=== PATIENT | female | born 1985 | race Caucasian/White ===

== ENCOUNTER 2019-04-18 09:13 | Outpatient (CLI) | payer OTHER, SELFPAY ==
[2019-04-18 09:50] LABS: Basophils Percent Auto 0.4 % (0.2-1.2); Eosinophils Absolute Auto 0.3 K/mm3 (0-0.3); Eosinophils Percent Auto 3.1 % (0-4.4); Hematocrit 29.5 % (37.0-47.0); Hemoglobin 9.6 g/dL (12.0-15.0); Immature Granulocyte Absolute 0.19 K/mm3 (0.00-0.031); Immature Granulocyte Percent A 1.8 % (0-0.5); Lymphocytes Absolute Auto 1.75 K/mm3 (0.9-3.2); Lymphocytes Percent Auto 16.9 % (18.3-44.2); Mean Corpuscular HGB Conc 32.5 g/dl (32-36); Mean Corpuscular Hemoglobin 29.4 pg (26-34); Mean Corpuscular Volume 90.5 fl (80-100); Mean Platelet Volume 9.8 fl (7.4-10.4); Monocytes Absolute Auto 0.5 K/mm3 (0.1-0.6); Monocytes Percent Auto 5.2 % (2.6-8.5); Neutrophils Absolute Auto 7.5 K/mm3 (1.3-6.7); Neutrophils Percent Auto 72.6 % (45.5-73.1); Platelet Count Result 249 k/mm3 (150-375); Red Blood Count 3.26 M/mm3 (4.2-5.4); Red Cell Distribution Width 13.2 % (11.5-14.5); White Blood Count 10.4 K/mm3 (4.5-10.0)
[2019-04-18 09:58] LABS: Add Urine Microscopic? YES; Appearance Urine Clear (Clear); Bacteria Urine Trace /hpf; Bilirubin Urine Negative (Negative); Blood Urine Negative (Negative); Color Urine Yellow (Yellow); Glucose Urine UA Negative (Negative); Ketones Urine Negative (Negative); Leukocyte Esterase Ur Negative LEU/UL (NEGATIVE); Nitrate Urine Negative (Negative); Protein Urine Negative (Negative); RBC Urine 0-2 /hpf (0-2); Specific Grav Ur 1.012 (1.001-1.035); Squamous Epithelial Cell Urine Rare /hpf (Few); Urobilinogen Urine Negative mg/dL (<2.0); WBC Urine 0-3 /hpf (0-3)
[2019-04-18 10:34] LABS: Thyroid Stimulating Hormone 0.274 uIU/mL (0.465-4.680)
[2019-04-18 10:48] LABS: Vitamin D 25 Hydroxy 25.3 ng/mL
[2019-04-18 10:50] LABS: HIV 1/2 Ab P24 Ag Result Negative (Negative); Hepatitis C Virus Antibody Negative (Negative)
[2019-04-21 09:40] LABS: Rapid Plasma Reagin Non-Reactive (NonReactive)
[2019-04-25 10:04] LABS: Hematocrit 31.5 % (35.0-45.0); MCH 30.1 pg (27.0-33.0); MCV 94.9 FL (80.0-100.0); RDW 15.3 % (11.0-15.0); Red Blood Cell Count 3.32 Mill/uL (3.80-5.10)
== END 2019-04-18 09:14 | disposition home or self-care (01) ==
PROVIDERS: Visit Provider Student in an Organized Health Care Education/Training Program
DX: O09.529 Supervision of elderly multigravida, unspecified trimester (principal); O23.40 Unspecified infection of urinary tract in pregnancy, unspecified trimester; Z3A.00 Weeks of gestation of pregnancy not specified
CPT/HCPCS: 36415; 81001; 81220; 81243; 82306; 83021; 84443; 85025; 86592; 86703; 86762; 86787; 86803; 86900; 86901; 87077; 87086; 87088; 87186; G0432

== ENCOUNTER 2019-04-24 07:48 | Outpatient (CLI) | payer OTHER, SELFPAY ==
[2019-04-24 08:44] LABS: Free T4 Free Thyroxine 0.55 ng/mL (0.78-2.19); Thyroid Stimulating Hormone 0.475 uIU/mL (0.465-4.680); Total Triiodothyronine (T3) 1.81 NG/ML (0.97-1.69)
[2019-04-26 02:51] LABS: Triiodothyronine T3 Free 2.5 pg/mL (2.3-4.2)
== END 2019-04-24 07:49 | disposition home or self-care (01) ==
PROVIDERS: Visit Provider Student in an Organized Health Care Education/Training Program
DX: R79.89 Other specified abnormal findings of blood chemistry (principal)
CPT/HCPCS: 36415; 84439; 84443; 84480; 84481

== ENCOUNTER 2019-07-05 06:54 | Outpatient (CLI) | payer OTHER, SELFPAY ==
[2019-07-05 08:13] LABS: Basophils Percent Auto 0.3 % (0.2-1.2); Eosinophils Absolute Auto 0.3 K/mm3 (0-0.3); Eosinophils Percent Auto 3.2 % (0-4.4); Hematocrit 30.1 % (37.0-47.0); Immature Granulocyte Absolute 0.48 K/mm3 (0.00-0.031); Immature Granulocyte Percent A 4.5 % (0-0.5); Lymphocytes Absolute Auto 1.98 K/mm3 (0.9-3.2); Lymphocytes Percent Auto 18.4 % (18.3-44.2); Mean Corpuscular HGB Conc 33.2 g/dl (32-36); Mean Corpuscular Hemoglobin 30.5 pg (26-34); Mean Corpuscular Volume 91.8 fl (80-100); Mean Platelet Volume 9.7 fl (7.4-10.4); Monocytes Absolute Auto 0.7 K/mm3 (0.1-0.6); Monocytes Percent Auto 6.7 % (2.6-8.5); Neutrophils Absolute Auto 7.2 K/mm3 (1.3-6.7); Neutrophils Percent Auto 66.9 % (45.5-73.1); Platelet Count Result 220 k/mm3 (150-375); Red Blood Count 3.28 M/mm3 (4.2-5.4); Red Cell Distribution Width 12.9 % (11.5-14.5); White Blood Count 10.8 K/mm3 (4.5-10.0)
[2019-07-05 09:57] LABS: Glucose 1 Hour PP 50gm Dose 150 mg/dL
== END 2019-07-05 06:55 | disposition home or self-care (01) ==
LOC: ANHLAB 06:55
PROVIDERS: Visit Provider Student in an Organized Health Care Education/Training Program
DX: Z34.82 Encounter for supervision of other normal pregnancy, second trimester (principal); Z3A.00 Weeks of gestation of pregnancy not specified
CPT/HCPCS: 36415; 82947; 85025

== ENCOUNTER 2019-07-09 06:59 | Outpatient (CLI) | payer OTHER, SELFPAY ==
[2019-07-09 07:32] LABS: Glucose Fasting Gestational 83 mg/dL (>/=95)
[2019-07-09 09:34] LABS: Glucose 1 Hour Gest 124 mg/dL (>/=180)
[2019-07-09 10:35] LABS: Glucose 2 Hour Gest 118 mg/dL (>/= 155)
[2019-07-09 11:43] LABS: Glucose 3 Hour Gest 107 mg/dL (>/=140)
== END 2019-07-09 07:00 | disposition home or self-care (01) ==
PROVIDERS: Visit Provider Student in an Organized Health Care Education/Training Program
DX: R73.09 Other abnormal glucose (principal)
CPT/HCPCS: 36415; 82951; 82952

== ENCOUNTER 2019-08-21 16:32 | Outpatient (CLI) | payer OTHER, SELFPAY ==
[2019-08-21 17:21] LABS: Basophils Percent Auto 0.4 % (0.2-1.2); Eosinophils Absolute Auto 0.2 K/mm3 (0-0.3); Eosinophils Percent Auto 2.2 % (0-4.4); Hemoglobin 11.5 g/dL (12.0-15.0); Immature Granulocyte Absolute 0.27 K/mm3 (0.00-0.031); Immature Granulocyte Percent A 2.5 % (0-0.5); Lymphocytes Absolute Auto 1.87 K/mm3 (0.9-3.2); Lymphocytes Percent Auto 17.1 % (18.3-44.2); Mean Corpuscular HGB Conc 33.8 g/dl (32-36); Mean Corpuscular Hemoglobin 30.8 pg (26-34); Mean Corpuscular Volume 91.2 fl (80-100); Mean Platelet Volume 10.6 fl (7.4-10.4); Monocytes Absolute Auto 0.9 K/mm3 (0.1-0.6); Monocytes Percent Auto 8.1 % (2.6-8.5); Neutrophils Absolute Auto 7.6 K/mm3 (1.3-6.7); Neutrophils Percent Auto 69.7 % (45.5-73.1); Platelet Count Result 213 k/mm3 (150-375); Red Blood Count 3.73 M/mm3 (4.2-5.4); Red Cell Distribution Width 13.3 % (11.5-14.5); White Blood Count 10.9 K/mm3 (4.5-10.0)
[2019-08-21 18:14] LABS: HIV 1/2 Ab P24 Ag Result Negative (Negative)
[2019-08-22 06:57] LABS: Rapid Plasma Reagin Non-Reactive (NonReactive)
== END 2019-08-21 16:33 | disposition home or self-care (01) ==
LOC: ANHLAB 16:33
PROVIDERS: Visit Provider Student in an Organized Health Care Education/Training Program
DX: Z34.83 Encounter for supervision of other normal pregnancy, third trimester (principal); Z3A.00 Weeks of gestation of pregnancy not specified
CPT/HCPCS: 36415; 85025; 86592; 86703; G0432

== ENCOUNTER 2019-08-23 14:55 | Outpatient (CLI) | payer OTHER, SELFPAY ==
[2019-08-23 15:32] LABS: Blood Urea Nitrogen 7 mg/dL (7-17); Calcium 8.5 mg/dL (8.4-10.2); Carbon Dioxide 22 mmol/L (22-30); Chloride 108 mmol/L (98-107); Estimated Glomerular Filt Rate > 60; Glucose 90 mg/dL (65-105); Potassium 3.7 mmol/L (3.4-5.0); Sodium 136 mmol/L (137-145)
== END 2019-08-23 14:56 | disposition home or self-care (01) ==
LOC: ANHOBOP 15:04
PROVIDERS: Visit Provider Student in an Organized Health Care Education/Training Program
DX: O13.9 Gestational [pregnancy-induced] hypertension without significant proteinuria, unspecified trimester (principal)
CPT/HCPCS: 36415; 80048

== ENCOUNTER 2019-08-23 14:55 | Outpatient (CLI) | payer OTHER, SELFPAY ==
[2019-08-23 15:12] VITALS: BMI 31.8
[2019-08-23 16:07] LABS: Collection Time Urine 24 HOURS
[2019-08-23 16:11] LABS: Total Volume 24 Hour Urine 1800 ml
[2019-08-23 16:13] LABS: Patient Weight 180 Lbs
[2019-08-23 16:15] LABS: Creatinine Clearance Urine 227.4 ml/min (75-125); Creatinine Urine 77.5 mg/dL; Total Protein Urine 24 Hr 288 MG/DAY (28-141); Total Protein Urine Random 16 mg/dL
== END 2019-08-23 14:56 | disposition home or self-care (01) ==
LOC: ANHOBOP 15:06
PROVIDERS: Visit Provider Student in an Organized Health Care Education/Training Program
DX: O13.9 Gestational [pregnancy-induced] hypertension without significant proteinuria, unspecified trimester (principal)
CPT/HCPCS: 81050; 82575; 84156

== ENCOUNTER 2019-08-28 08:55 | Outpatient (RCR) | payer OTHER, SELFPAY ==
[2019-08-22 13:40] VITALS: BP 116/71; PULSE 87
--- NOTE | ~2019-08-28 | US_ITS ---
EXAMINATION: US OB limited w BPP DATE: 08/22/2019 14:33 CDT INDICATION: Evaluate well-being. EJ. TECHNIQUE: Real-time transabdominal obstetric ultrasound. FINDINGS: No prior studies for comparison. There is a single living fetus in vertex presentation. The placenta is posterior without placenta pr evia. cardiac activity and movement is noted with a heart rate of 165 beats per minute. Biophysical profile: breathin of 2 movement: 2 of 2 tone: 2 of 2 Amniotic flud pocket: 2 of 2 Total score: 8 of 8 EJ is lower limits of normal measuring 8.8 cm (normal range for gestational age is 7.8-24.9 cm). IMPRESSION: 1. Single living intrauterine in vertex presentation. 2: Total biophysical profile score of 8/8. 3: Normal EJ measures 8.8 cm. Reviewed, dictated and finalized at location B.
[2019-08-28 09:40] VITALS: BP 122/73; PULSE 100
== END 2019-09-02 07:44 | disposition home or self-care (01) ==
LOC: ANHOBOP 08:55
PROVIDERS: Visit Provider Student in an Organized Health Care Education/Training Program
DX: O26.893 Other specified pregnancy related conditions, third trimester (principal); R03.0 Elevated blood-pressure reading, without diagnosis of hypertension; Z3A.35 35 weeks gestation of pregnancy
CPT/HCPCS: 59025; 76815; 76819

== ENCOUNTER 2019-08-31 18:53 | Inpatient (IN) | payer OTHER, SELFPAY ==
[2019-08-31] VITALS (13 sets, daily range): BP systolic 100–149; BP diastolic 67–88; PULSE 68–100; RESP 18; TEMP 36.4–36.8; BMI 32.0
[2019-08-31] MEDS: DINOPROSTONE 10 MG VAG INSERT VAGINAL (19:40)
[2019-08-31 19:44] LABS: Basophils Percent Auto 0.3 % (0.2-1.2); Eosinophils Absolute Auto 0.2 K/mm3 (0-0.3); Eosinophils Percent Auto 2.4 % (0-4.4); Hematocrit 33.3 % (37.0-47.0); Hemoglobin 11.2 g/dL (12.0-15.0); Immature Granulocyte Absolute 0.17 K/mm3 (0.00-0.031); Immature Granulocyte Percent A 1.7 % (0-0.5); Lymphocytes Absolute Auto 1.98 K/mm3 (0.9-3.2); Lymphocytes Percent Auto 19.8 % (18.3-44.2); Mean Corpuscular HGB Conc 33.6 g/dl (32-36); Mean Corpuscular Hemoglobin 30.3 pg (26-34); Mean Platelet Volume 10.5 fl (7.4-10.4); Monocytes Absolute Auto 0.8 K/mm3 (0.1-0.6); Monocytes Percent Auto 7.9 % (2.6-8.5); Neutrophils Absolute Auto 6.8 K/mm3 (1.3-6.7); Neutrophils Percent Auto 67.9 % (45.5-73.1); Platelet Count Result 198 k/mm3 (150-375); Red Cell Distribution Width 13.1 % (11.5-14.5)
--- NOTE | 2019-08-31 19:52 | LDADM ---
This patient, Zoe Hoffmann, was admitted to Labor/Delivery/Recovery 109 on 08/31/19 at 18:53. Plans for labor, pain management and were discussed with patient. Patient/family oriented to hospital policies and general routines including ID bracelet, bed and alarms, visiting hours, pain management, procedures, bathroom and other care routines, personal items, smoking policy, room service/diet and guest tray routines, security routines, and visiting hours. Patient/Family are encouraged to report perceived risks to care and to ask questions if they do not understand what they are told or what they should do. See OBIX for further documentation.
[2019-08-31 21:43] LABS: Alanine Aminotransferase 11 U/L (4-35); Albumin Level 3.2 g/dL (3.5-5.1); Alkaline Phosphatase 136 U/L (38-126); Anion Gap 10.9 mmol/L (7-16); Aspartate Amino Transferase 17 U/L (14-36); Bilirubin,Total 0.3 mg/dL (0.2-1.3); Blood Urea Nitrogen 8 mg/dL (7-17); Calcium 8.8 mg/dL (8.4-10.2); Carbon Dioxide 21 mmol/L (22-30); Chloride 106 mmol/L (98-107); Estimated CRCL calculation 132 ml/min; Estimated Glomerular Filt Rate > 60; Glucose 93 mg/dL (65-105); Potassium 3.9 mmol/L (3.4-5.0); Sodium 134 mmol/L (137-145); Uric Acid 3.9 mg/dL (2.5-7.5)
--- NOTE | 2019-08-31 21:53 | PM.IMHP ---
H&P: HPI History of Present Illness Chief complaint: IOL Narrative: Zoe Hoffmann is a 34 year old female LMP 12/20/18 currently 37w1d with SWETHA 09/20/19. Patient is dated by an ultrasound on 02/13/19 at 8w gestation. Patient presents to L&D for scheduled IOL secondary to gestational hypertension. Patient's BP was WNL for the majority of her until 08/21/19 when she had her first documented BP elevation in the office. Labs were obtained and WNL. Patient continued home BP measurements and reported values 110s-140s/60-90s. The patient also reported an increase in headaches over previous week. She was diagnosed with gestational hypertension and decision was made to proceed with induction of labor. Patient reports feeling well today. Currently denies any headache, chest pain, SOB, N/V, visual disturbances, or RUQ tenderness. Also denies any vaginal bleeding, leakage of fluid, or contractions. Reports good movement. Review of Systems Review of Systems: All systems reviewed & are unremarkable except as noted in HPI and below Constitutional: Constitutional: Reports as per HPI, Reports no additional constitutional complaints, Denies chills, Denies fever(s), Denies headache(s) and Denies night sweats Eyes: Eyes: Reports as per HPI and Reports no additional eye complaints ENT: Reports system reviewed and no additional complaints, except as documented, Reports as per HPI, Reports Normal hearing present and Denies headache(s) Cardiovascular: Cardiovascular: Reports as per HPI, Reports no additional cardiovascular complaints, Denies chest pain and Denies dyspnea Respiratory: Respiratory: Reports as per HPI, Reports no additional respiratory complaints, Denies cough and Denies dyspnea Gastrointestinal: Gastrointestinal: Reports as per HPI, Reports no additional gastrointestinal complaints, Denies abdominal pain, Denies change in bowel habits, Denies change in stool character, Denies nausea and Denies vomiting Genitourinary: Genitourinary: Reports no additional female genitourinary complaints, Reports as per HPI, Denies abnormal vaginal bleeding, Denies genital lesions, Denies hot flashes, Denies dyspareunia, Denies pelvic pain, Denies sexual dysfunction, Denies urinary incontinence, Denies vaginal discharge, Denies vaginal dryness and Denies vaginal odor Musculoskeletal: Musculoskeletal: Reports no additional musculoskeletal complaints and Reports as per HPI Integumentary/Breasts: Skin/Breast: Reports system reviewed and no additional complaints, except as docu, Reports as per HPI, Denies breast pain and Denies nipple discharge Neurologic: Reports system reviewed and no additional complaints, except as documented, Reports as per HPI, Reports Normal hearing present and Denies headache(s) Psychiatric: Psychiatric: Reports no additional psychiatric complaints, Reports as per HPI, Denies anxiety and Denies depression Endocrine: Endocrine: Reports no additional endocrine complaints and Reports as per HPI Hematologic/Lymphatic: Hematologic/Lymphatic: Reports no additional hematologic/lymphatic complaints and Reports as per HPI Allergic/Immunologic: Allergic/Immunologic: Reports no additional allergic/immunologic complaints and Reports as per HPI [facility] Family History Family History Grandparent Family history of type 2 diabetes mellitus Diabetes mellitus Father Hypertension Social History Social History Smoking status: Current every day smoker Tobacco type: cigarettes Second hand tobacco smoke exposure: Yes Alcohol intake: current Substance use: never Substance use type: methamphetamine Gender identity (if verbalized by the patient): Female Spiritual care concerns: No Meds Home Medications and Allergies Home Medications Medication Instructions Recorded Confirmed Type docosahexaenoic acid 200 mg capsul
[2019-08-31 22:18] LABS: Creatinine Urine 31.5 mg/dL; Total Protein Urine Random 11 mg/dL
[2019-08-31 22:21] LABS: Amphetamine Screen Urine Negative (Negative); Barbiturate Screen Urine Negative (Negative); Benzodiazepines Screen Urine Negative (Negative); Cannabinoid Screen Urine Negative (Negative); Cocaine Screen Urine Negative (Negative); Methadone Screen Urine Negative (Negative); Opiate Screen Urine Negative (Negative); Phencyclidine Screen Urine Negative (Negative)
[2019-08-31 22:53] LABS: Hepatitis B Surface Antigen Negative (Negative)
[2019-09-01] VITALS (146 sets, daily range): BP systolic 97–180; BP diastolic 47–107; PULSE 37–134; TEMP 36.4–36.8; O2SAT 74–100
[2019-09-01] MEDS: AMPICILLIN 2 GM/NS 100 ML 2 GM/100 ML BAG IVPB (05:31)
[2019-09-01] MEDS: LACTATED RINGERS 1,000 ML 125 ML IV CONT ×3 (05:31→14:43)
--- NOTE | 2019-09-01 06:11 | WPDANESEPP ---
Anes - Eval Pre Procedure Procedure: labor epidural Date/Time: 09/01/19 06:11 Surgeon: Bo Preop Diagnosis: labor pain Pre Op Diagnosis: IOL Patient Data Age: 34 Gender: F Height: 1.6 m Weight: 82 kg Last Vital Signs Temp 36.8 C 09/01/19 01:35 Pulse 74 09/01/19 06:00 BP 114/69 09/01/19 06:00 Allergies Allergy/AdvReac Type Severity Reaction Status Date / Time No Known Allergies Allergy Verified 08/28/19 08:42 Home Medications Medication Instructions Recorded Confirmed Type docosahexaenoic acid 200 mg capsule mg PO 02/06/19 History omeprazole 20 mg capsule,delayed 20 mg PO DAILY #30 cap 06/19/19 06/19/19 Rx release sulfamethoxazole 800 1 tablet PO Q12H #6 tablet 06/23/19 Rx mg-trimethoprim 160 mg tablet blood pressure monitor #1 each 08/21/19 08/21/19 Rx ferrous sulfate 325 mg (65 mg 325 mg PO BID #60 tablet 08/25/19 Rx iron) tablet Laboratory Tests 08/31/19 08/31/19 08/31/19 19:34 19:34 19:34 WBC 10.0 K/mm3 K/mm3 (4.5-10.0) RBC 3.70 M/mm3 L M/mm3 (4.2-5.4) Hgb 11.2 g/dL L g/dL (12.0-15.0) Hct 33.3 % L % (37.0-47.0) MCV 90.0 fl fl (80-100) MCH 30.3 pg pg (26-34) MCHC 33.6 g/dl g/dl (32-36) RDW 13.1 % % (11.5-14.5) Plt Count 198 k/mm3 k/mm3 (150-375) MPV 10.5 fl H fl (7.4-10.4) Immature Gran % (Auto) 1.7 % H % (0-0.5) Neut % (Auto) 67.9 % % (45.5-73.1) Lymph % (Auto) 19.8 % % (18.3-44.2) Catahoula % (Auto) 7.9 % % (2.6-8.5) Eos % (Auto) 2.4 % % (0-4.4) Baso % (Auto) 0.3 % % (0.2-1.2) Lymph # (Auto) 1.98 K/mm3 K/mm3 (0.9-3.2) C[place]oula # (Auto) 0.8 K/mm3 H K/mm3 (0.1-0.6) Eos # (Auto) 0.2 K/mm3 K/mm3 (0-0.3) Baso # (Auto) 0.0 K/mm3 K/mm3 (0.0-0.1) Abs Immat Gran (auto) 0.17 K/mm3 H K/mm3 (0.00-0.031) Absolute Neuts (auto) 6.8 K/mm3 H K/mm3 (1.3-6.7) Absolute Nucleated RBC 0.0 K/mm3 K/mm3 (0.0-0.012) Nucleated RBC % 0.0 % % (0.0-0.2) Sodium Potassium Chloride Carbon Dioxide Anion Gap BUN Creatinine Estim Creat Clear Calc Estimated GFR Glucose Uric Acid Calcium Total Bilirubin AST ALT Alkaline Phosphatase Total Protein Albumin U Random Total Protein Urine Creatinine Urine Opiates Screen Urine Methadone Screen Ur Barbiturates Screen Ur Phencyclidine Scrn Ur Amphetamine Screen U Benzodiazepines Scrn Urine Cocaine Screen U Cannabinoids Screen RPR Pending Hep Bs Antigen Blood Type O Positive Antibody Screen Negative 08/31/19 08/31/19 08/31/19 21:02 21:02 21:49 WBC RBC Hgb Hct MCV MCH MCHC RDW Plt Count MPV Immature Gran % (Auto) Neut % (Auto) Lymph % (Auto) Catahoula % (Auto) Eos % (Auto) Baso % (Auto) Lymph # (Auto) Catahoula # (Auto) Eos # (Auto) Baso # (Auto) Abs Immat Gran (auto) Absolute Neuts (auto) Absolute Nucleated RBC Nucleated RBC % Sodium 134 mmol/L L mmol/L (137-145) Potassium 3.9 mmol/L mmol/L (3.4-5.0) Chloride 106 mmol/L mmol/L (98-107) Carbon Dioxide 21 mmol/L L mmol/L (22-30) Anion Gap 10.9 mmol/L mmol/L (7-16) BUN 8 mg/dL mg/dL (7-17) Creat
[2019-09-01] MEDS: OXYTOCIN 30 UNITS/NS 500 ML 30 UNITS/500 ML BAG IV CONT (08:55)
[2019-09-01] MEDS: AMPICILLIN 1 GM/NS 50 ML 1 GM/50 ML BAG IVPB ×2 (09:27→13:30)
[2019-09-01 10:06] LABS: Rapid Plasma Reagin Non-Reactive (NonReactive)
--- NOTE | 2019-09-01 11:28 | PM.OBPNLAB ---
Pain Control Date/time seen: 09/01/19 11:28 Patient doing well. Reports feeling mild contractions. AROM, clear, however, blood tinged fluid noted. SVE /-2. EFM Cat. 1. Continue pitocin. Pain management PRN.
[2019-09-01] MEDS: miSOPROStol 200 MCG TABLET 1000 MCG (17:40)
[2019-09-01] MEDS: CARBOPROST TROMETHAMINE 250 MCG/ML AMPUL (17:44)
--- NOTE | 2019-09-01 17:58 | PM.OBPRVD ---
OB - Delivery Note Procedure Delivery date: 09/01/19 Procedure: The patient is a 34-year-old G2 now P2002 was admitted to Labor and Delivery on 08/31/2019 at 37 weeks and 1 day gestation for scheduled induction of labor secondary to gestational hypertension. Induction labor was begun with Cervidil. Initial cervical exam was fingertip dilated. Cervidil remained in place for 12 hours after which it was removed. Patient's cervical exam was approximately 1.5 cm dilated. Ampicillin was started for GBS prophylaxis. Pitocin was started and slowly titrated. Artificial rupture of membranes was performed at 11:15 a.m. Clear, however, blood-tinged amniotic fluid was noted. Patient's cervical exam at this time was 3 cm dilated. Pitocin was continued to be titrated throughout the remainder of the morning and afternoon. Patient became uncomfortable and requested epidural for pain management which was placed without difficulty. Contraction pattern was difficult to monitor and cervical change slowed down. An IUPC was placed for enhanced monitoring. Pitocin was continued and patient progressed to fully dilated. She was noted to be fully dilated at 5:10 p.m. Patient was prepped and draped for delivery. With single push, patient delivered infant's head atraumatically and without difficulty in RICHELLE presentation. Occiput restituted to maternal right side. A nuchal cord x1 was noted, however, was tight and unable to be reduced. With subsequent push, 's neck, shoulders, and rest of body were delivered without difficulty. Infant's nose and mouth were suctioned with bulb suction. was crying spontaneously. was placed on maternal abdomen and care was assumed by awaiting nursing staff. Delayed cord clamping was performed for 60 seconds. The cord was clamped and cut. A segment of cord was collected for cord gases. Cord blood was collected. The placenta was delivered spontaneously and intact. Moderate amount of brisk bleeding was noted. Vigorous bimanual massage was performed. Bleeding slowed down for a few minutes, however, brisk bleeding resumed. 1 mg of Cytotec was administered per rectum. Straight catheterization was performed with approximately 30 cc of clear urine returned. Placenta was reinspected without any abnormalities noted. Bimanual massage revealed firm fundus, however, slightly boggy lower uterine segment. Hemabate x1 dose was administered IM. Bleeding subsided. The patient was cleansed and dried. Estimated blood loss for entire delivery was 500 cc. The infant was a live-born female , weighing 6 lb 12 oz, Apgars 9 and 9. Both mother and baby doing well after delivery. events: Induced HTN and Labor Induction Induction method: other (cervidil) Delivery augmentation: rupture of membranes Delivery monitor: external FHT, external uterine and internal uterine Route of delivery: Laceration description: None Specimen: Yes (cord gases, cord blood and placenta) Estimated blood loss (mL): 500 Anesthesia type: Epidural Disposition: floor Complications: No immediate complications Baby Date of : 09/01/19 Time of : 17:32 Weeks of gestation at delivery: 37 gender: Female Weight (pounds): 6 Weight (ounces): 12 presentation: vertex position: Right Occiput Anterior Placenta delivery description: Spontaneous cord vessel description: 3 Vessels, Nuchal Cord and Clamped/Cut score one minute: 9 score five minutes: 9
[2019-09-01] MEDS: OXYTOCIN 30 UNITS/NS 500 ML 30 UNITS/500 ML BAG 999 UNITS IV CONT (18:30)
[2019-09-01] MEDS: OXYTOCIN 30 UNITS/NS 500 ML 30 UNITS/500 ML BAG 125 UNITS IV CONT (19:10)
--- NOTE | 2019-09-01 20:54 | PC.NURSE ---
September 01, 2019 at 1952. Patient transferred to post room #284 in wheelchair. Support person present. Oriented to unit, room, information board, rooming in, admission packet and security measures. Patient verbalizes understanding.
[2019-09-01] MEDS: ACETAMINOPHEN 325 MG TABLET 650 MG PO (21:10)
[2019-09-02 05:32] LABS: Hematocrit 32.6 % (37.0-47.0); Hemoglobin 10.7 g/dL (12.0-15.0)
[2019-09-02 07:55] VITALS: BP 109/60; PULSE 69; RESP 18; TEMP 36.8; O2SAT 98
--- NOTE | 2019-09-02 08:14 | PM.OBPNVD ---
OB - PN: Subj Subjective Date/time seen: 09/02/19 08:14 Patient doing well this AM. No complaints. Reports minimal lochia. Ambulating well. Denies any headache, chest pain, SOB, N/V, visual disturbances, or RUQ tenderness. OB - PN: Obj Data Labs CBC & Chem 7: 09/02/19 04:09 08/31/19 21:02 Labs: Laboratory Results - last 24 hr 08/31/19 09/02/19 19:34 04:09 Hgb 10.7 L Hct 32.6 L RPR Non-reactive OB - PN A/P Assessment and Plan (1) Normal spontaneous vaginal delivery: Code(s): O80 - Encounter for full-term uncomplicated delivery Status: Acute Assessment and Plan: doing well continue routine care anticipate dc home tomorrow (2) Gestational hypertension: Code(s): O13.9 - Gestational [-induced] hypertension without significant proteinuria, unspecified trimester Status: Acute Assessment and Plan: BP WNL this AM asymptomatic Time Spent With Patient Time: Total time spent is greater than 50% in coordination of care (as documented) at patient's floor/unit and/or counseling patient: Exam Const: General: comfortable and no acute distress GI: GI Palp: Yes Soft to palpation and No Tenderness to palpation present (GI) Other: fundus below umbilicus Extrem: Right lower extremity: no edema Left lower extremity: no edema
[2019-09-02] MEDS: DOCUSATE SODIUM 100 MG CAPSULE PO ×2 (09:36→15:17)
--- NOTE | 2019-09-02 09:45 | WPDANLDPN2 ---
Anes-Prog Note L&D Date/Time: 09/02/19 09:45 Comfortable throughout: labor Epidural/Spinal procedure site: clean & non-tender Neuro status: Neuro function grossly intact. Cardiovascular status: normal Respiratory status: normal Airway patency: baseline Mental status: baseline Post-Op hydration status: normal Vital Signs: Last Vital Signs Temp 36.8 C 09/02/19 07:55 Pulse 69 09/02/19 07:55 Resp 18 09/02/19 07:55 BP 109/60 09/02/19 07:55 Pulse Ox 98 09/02/19 07:55 I/O: Intake & Output 09/01/19 09/02/19 09/02/19 23:59 07:59 15:59 Intake Total 1200 Balance 1200 Post-procedural complaints: none Patient feedback: Patient satisfied with anesthetic care.
[2019-09-02] MEDS: WITCH HAZEL 40 PADS 1 PAD TOPICAL (15:14)
[2019-09-02] MEDS: DIBUCAINE 1% OINTMENT 30 GM TUBE 1 APPLIC TOPICAL (15:14)
[2019-09-02 18:55] VITALS: BP 132/68; PULSE 71; RESP 14; TEMP 36.7; O2SAT 98
[2019-09-02] MEDS: IBUPROFEN 600 MG TABLET PO (19:10)
[2019-09-03] MEDS: TETANUS,DIPHTHERIA,AC PERTUSSIS ADULT (0.5 ML) BOOSTRIX IM (05:27)
--- NOTE | 2019-09-03 07:36 | WPDANLDPN2 ---
Anes-Prog Note L&D Date/Time: 09/03/19 07:36 Comfortable throughout: labor Epidural/Spinal procedure site: clean & non-tender Neuro status: Neuro function grossly intact. Cardiovascular status: normal Respiratory status: normal Airway patency: baseline Mental status: baseline Post-Op hydration status: normal Vital Signs: Last Vital Signs Temp 36.7 C 09/02/19 18:55 Pulse 71 09/02/19 18:55 Resp 14 09/02/19 18:55 BP 132/68 09/02/19 18:55 Pulse Ox 98 09/02/19 18:55 Post-procedural complaints: none Patient feedback: Patient satisfied with anesthetic care.
[2019-09-03 08:00] VITALS: BP 135/81; PULSE 75; RESP 18; TEMP 36.6; O2SAT 99
--- NOTE | 2019-09-03 08:01 | P.PNOB_ITS ---
OB - PN: Subj Subjective Date/time seen: 09/03/19 08:01 Patient comments: pain well controlled, tolerating diet and other (Decreasing lochia.) baby status: doing well and nursing well OB - PN: Obj Data Labs CBC & Chem 7: 09/02/19 04:09 08/31/19 21:02 OB - PN A/P Plan day: 2 Plan: discharge home and other Comments: Patient doing well. Follow up 4-6 weeks. Discharge instructions provided. Time Spent With Patient Time: Total time spent is greater than 50% in coordination of care (as docum ented) at patient's floor/unit and/or counseling patient: Time with patient: less than 15 minutes Exam Psych: Affect: normal affect Other: Abd: fundus firm below umbilicus, nontender Perineum: healing Ext: nontender
--- NOTE | 2019-09-03 08:01 | PM.DS ---
DS: Admitting Diagnosis Admitting Diagnosis Admitting Diagnosis: Admission for medical induction of labor for gestational hypertension. DS: Discharge Diagnosis Discharge Diagnosis (1) Normal spontaneous vaginal delivery: Code(s): O80 - Encounter for full-term uncomplicated delivery Status: Acute (2) Encounter for induction of labor: Code(s): Z34.90 - Encounter for supervision of normal , unspecified, unspecified trimester Status: Acute (3) Gestational hypertension: Code(s): O13.9 - Gestational [-induced] hypertension without significant proteinuria, unspecified trimester Status: Acute DS: Summary Time Spent with Patient Time attestation: Total time spent providing and/or coordinating discharge services: Exam Psych: Affect: normal affect Other: Abd: fundus firm below umbilicus, nontender Perineum: healing Ext: nontender DS: Data Data Completed and Pending Pending studies at discharge: Pending at discharge 09/01/19 18:12 Surgical [PTH] Routine Discharge Plan Discharge Attending physician on discharge: Desirae Soriano Discharging Clinician: Boogie Bone Anticipated Discharge Date/Time: 09/03/19 08:06 Patient Disposition: Home, Self-Care Activity: may shower and pelvic rest Diet: regular Discharge Instructions: Pelvic rest 4-6 weeks. May take over the counter Tylenol for pain. Call for follow up appointment. Call for temp >100.4, saturating more than pad an hour, leg pain or redness. Patient Instructions: Antibiotic Form, How to Stop Smoking (DC) Stand Alone Forms: General Discharge Information Follow-up/Referrals: Desirae Soriano MD [Physician] - 4 Weeks (Call for appointment.) Discharge Medications: Discontinued omeprazole 20 mg capsule,delayed release(DR/EC) 20 mg PO DAILY Qty: 30 RF: 2 DHA 200 mg capsule 1 mg PO DAILY RF: 0 sulfamethoxazole-trimethoprim 800-160 mg tablet 1 tablet PO Q12H Qty: 6 RF: 0 ferrous sulfate 325 mg (65 mg iron) tablet 325 mg PO BID Qty: 60 RF: 0 No Action (DME) blood pressure monitor [Blood Pressure Kit] Kit See Rx Instructions .ROUTE .MEDSUPPLY Qty: 1 RF: 0 Date of admission: 08/31/19 18:53 Primary Care Provider: PHYSICIAN,SLURRY CONTROL OPERATOR HELPER Admitting Provider: Desirae Soriano Attending physician on admission: Desirae Soriano
[2019-09-03] MEDS: DOCUSATE SODIUM 100 MG CAPSULE PO (10:18)
[2019-09-03] MEDS: IBUPROFEN 600 MG TABLET PO (10:18)
[2019-09-04 11:16] VITALS: BP 136/86; PULSE 86; RESP 18; TEMP 36.9; O2SAT 98
== END 2019-09-03 14:36 | disposition home or self-care (01) | DRG 807 ==
LOC: ANHLDR 19:25 → ANHOB2 09-02 11:44 → ANHLDR 09-04 08:44 → ANHOB2 09-04 08:44
PROVIDERS: Admitting Provider Student in an Organized Health Care Education/Training Program; Visit Provider Obstetrics & Gynecology
DX: O13.4 Gestational [pregnancy-induced] hypertension without significant proteinuria, complicating childbirth (principal); Z37.0 Single live birth; O99.824 Streptococcus B carrier state complicating childbirth; O69.82X0 Labor and delivery complicated by other cord entanglement, without compression, not applicable or unspecified; Z3A.37 37 weeks gestation of pregnancy; O99.334 Smoking (tobacco) complicating childbirth; F17.210 Nicotine dependence, cigarettes, uncomplicated
CPT/HCPCS: 36415; 80053; 80307; 82570; 84156; 84550; 85014; 85018; 85025; 86592; 86850; 86900; 86901; 87340; 88307; 90715; A9270; J0290; J2590; J2795; J7120

== ENCOUNTER 2021-05-23 09:22 | Emergency (ER) | payer BC, SELFPAY ==
--- NOTE | ~2021-05-23 | CT_ITS ---
EXAMINATION: CT abdomen pelvis w con DATE: 05/23/2021 12:22 INDICATION: Upper abdominal pain. Nausea. TECHNIQUE: Computed tomography (CT) of the abdomen and pelvis was performed with 100 mL Omnipaque 350 intravenous contrast. Automated exposure control and iterative reconstruction technique were employe d. The dose-length product was 341.99 mGy-cm. COMPARISON: CT abdomen and pelvis 10/15/2017 FINDINGS: The visualized portions of the lung bases and mild atelectasis. No pleural effusion. The he art size is normal. No pericardial effusion. The liver, gallbladder, pancreas, adrenal glands, and ki dneys are normal. Calcifications in the spleen are consistent with old granulomatous disease. There i s an intrauterine device in expected position. There are no dilated loops of bowel. There is divertic ulosis of the colon without evidence of diverticulitis. The appendix is normal. There are no patholog ically enlarged lymph nodes. There is physiologic fluid in the pelvis. There is mild lumbar spondylos is. IMPRESSION: 1. No etiology for the patient's symptoms. Reviewed, dictated and finalized at location B.
[2021-05-23 09:45] VITALS: BP 133/83; PULSE 95; RESP 16; TEMP 36.5; O2SAT 100
[2021-05-23 09:54] LABS: Basophils Percent Auto 0.6 % (0.2-1.2); Eosinophils Absolute Auto 0.4 K/mm3 (0-0.3); Eosinophils Percent Auto 5.8 % (0-4.4); Hemoglobin 13.4 g/dL (12.0-15.0); Immature Granulocyte Absolute 0.02 K/mm3 (0.00-0.031); Immature Granulocyte Percent A 0.3 % (0-0.5); Lymphocytes Absolute Auto 2.47 K/mm3 (0.9-3.2); Lymphocytes Percent Auto 34.8 % (18.3-44.2); Mean Corpuscular HGB Conc 31.9 g/dl (32-36); Mean Corpuscular Hemoglobin 29.4 pg (26-34); Mean Corpuscular Volume 92.1 fl (80-100); Mean Platelet Volume 9.3 fl (7.4-10.4); Monocytes Absolute Auto 0.6 K/mm3 (0.1-0.6); Monocytes Percent Auto 7.9 % (2.6-8.5); Neutrophils Absolute Auto 3.6 K/mm3 (1.3-6.7); Neutrophils Percent Auto 50.6 % (45.5-73.1); Platelet Count Result 255 k/mm3 (150-375); Red Blood Count 4.56 M/mm3 (4.2-5.4); Red Cell Distribution Width 13.2 % (11.5-14.5); White Blood Count 7.1 K/mm3 (4.5-10.0)
[2021-05-23 10:02] LABS: Alanine Aminotransferase 22 U/L (4-35); Albumin Level 4.3 g/dL (3.5-5.1); Alkaline Phosphatase 65 U/L (38-126); Anion Gap 6 mmol/L (8-16); Aspartate Amino Transferase 29 U/L (14-36); Bilirubin,Total 0.9 mg/dL (0.2-1.3); Blood Urea Nitrogen 14 mg/dL (7-17); Calcium 8.3 mg/dL (8.4-10.2); Carbon Dioxide 26 mmol/L (22-30); Chloride 107 mmol/L (98-107); Estimated CRCL calculation 78 ml/min; Estimated Glomerular Filt Rate > 60; Glucose 95 mg/dL (65-110); Lipase 79 U/L (23-300); Potassium 4.1 mmol/L (3.4-5.0); Sodium 139 mmol/L (137-145)
[2021-05-23 10:20] LABS: Appearance Urine Cloudy (Clear); Bilirubin Urine Negative (Negative); Blood Urine 1+ (Negative); Color Urine Yellow (Yellow); Glucose Urine UA Negative (Negative); Ketones Urine Negative (Negative); Leukocyte Esterase Ur Negative LEU/UL (Negative); Nitrate Urine Positive (Negative); Protein Urine Negative (Negative); Specific Grav Ur 1.015 (1.001-1.035); Urobilinogen Urine 0.2 mg/dL (<2.0); pH Urine 5.5 (5.0-9.0)
[2021-05-23 10:32] LABS: Bacteria Urine Trace /hpf; Mucus Urine Rare /lpf; RBC Urine 0-2 /hpf (0-2); Squamous Epithelial Cell Urine Occasional /hpf (Few); WBC Urine 0-3 /hpf
[2021-05-23 10:35] LABS: Add Urine Microscopic? YES
[2021-05-23] MEDS: SODIUM CHLORIDE 0.9% IV 1,000 ML 999 ML IV CONT (11:59)
[2021-05-23] MEDS: ONDANSETRON INJ 4 MG/2 ML VIAL IV PUSH (12:00)
[2021-05-23] MEDS: KETOROLAC 30 MG/ML VIAL (*BKC) IV PUSH (12:01)
--- NOTE | 2021-05-23 12:45 | PC.NURSE ---
RN assisted ERP with rectal exam.
[2021-05-23 12:53] VITALS: BP 95/64; PULSE 58; RESP 16; O2SAT 100
--- NOTE | 2021-05-23 13:22 | ED.ABDPAIN ---
HPI - Abdominal Pain General Chief Complaint: Abdominal Pain Stated Complaint: abdominal pain Time Seen by Provider: 05/23/21 11:17 Source: RN notes reviewed History of Present Illness HPI narrative: Patient presents emergency department from home for abdominal pain. Patient states symptoms began approximately 5 days ago states she has been having intermittent upper abdominal pain associated with nausea states nothing seems to make the pain better or worse but states that she does not have much of an appetite with the symptoms she also notes that she has been having dark stools she denies any fevers or chills, chest pain, shortness of breath, vomiting diarrhea or any other symptoms states she not take any medication for the pain today she did go to urgent care first had negative flu and COVID swab Related Data Home Medications Medication Instructions Recorded Confirmed levonorgestrel 20 mcg/24 hours (7 1 device INTRAUTERINE ONCE 11/18/19 yrs) 52 mg intrauterine device Allergies Allergy/AdvReac Type Severity Reaction Status Date / Time No Known Allergies Allergy Verified 05/23/21 11:30 Review of Systems Review of Systems: Gen.: Denies fevers or chills ENT: Denies congestion Respiratory: Denies shortness of breath or cough CV: Denies chest pain or palpitations GI: See HPI Musculoskeletal: Denies back pain or muscle pain Neuro: Denies numbness, tingling, weakness or focal weakness Skin: Denies rash Except as documented, all other systems reviewed and negative [facility] Past Medical History Medical History Vaginal delivery Family History Family History Grandparent Family history of type 2 diabetes mellitus Diabetes mellitus Father Hypertension Social History Social History Smoking status: Former smoker Tobacco type: cigarettes Second hand tobacco smoke exposure: Yes Alcohol intake: current Substance use: never Substance use type: methamphetamine Gender identity (if verbalized by the patient): Female Spiritual care concerns: No Exam Narrative: APPEARANCE: No acute distress, nontoxic, resting in bed HEENT: Normocephalic, atraumatic, OMM RESPIRATORY: No respiratory distress, clear to auscultation bilaterally with no rhonchi wheezing or rales CARDIOVASCULAR: RRR s murmur ABDOMINAL: Soft nondistended tender palpation epigastric, right upper quadrant and left upper quadrant no tenderness of right lower quadrant left lower quadrant no rebound or guarding Rectal: No hemorrhoids or fissures no active bleeding soft brown stool that is Hemoccult negative MUSCULOSKELETAl: Moves all extremities. No clubbing, cyanosis or edema. NEURO: Awake and alert. Following commands, speech normal, no focal deficits SKIN:: Warm, dry. Normal Color PSYCHIATRIC: Normal affect/mood Course Course Emergency Course: Patient notes improvement with GI cocktail Patient states that they are feeling much better at this time. States abdominal pain has resolved. Repeat abdominal exam shows the patient's abdomen to be soft and nontender. Discussed with patient results of workup and diagnosis. Discussed need for follow-up with primary care physician, reasons to return to the emergency department in proper use of medication. Patient understands and agrees to current treatment plan Vital Signs Vital signs: Vital Signs Temperature 97.7 F 05/23/21 09:45 Pulse Rate 95 05/23/21 09:45 Respiratory Rate 16 05/23/21 09:45 Blood Pressure 133/83 05/23/21 09:45 Pulse Oximetry 100 05/23/21 09:45 Temperature 97.7 F 05/23/21 09:45 Pulse Rate 58 L 05/23/21 12:53 Respiratory Rate 16 05/23/21 12:53 Blood Pressure 95/64 L 05/23/21 12:53 Pulse Oximetry 100 05/23/21 12:53 MDM - Abdominal Pain MDM Narrative Medical decision making narrative: Roshni
[2021-05-23 14:06] VITALS: BP 90/65; PULSE 71; RESP 18; O2SAT 100
== END 2021-05-23 14:06 | disposition home or self-care (01) ==
PROVIDERS: Emergency Provider Emergency Medicine
DX: R10.13 Epigastric pain (principal); Z87.891 Personal history of nicotine dependence
CPT/HCPCS: 36415; 74177; 80053; 81001; 81025; 83690; 85025; 96361; 96374; 96375; 99284; A9270; J1885; J2405; J7030; Q9967

== ENCOUNTER 2021-06-07 12:25 | Outpatient (CLI) | payer SELFPAY ==
--- NOTE | ~2021-06-07 | MMUS_ITS ---
EXAMINATION: MM diagnostic kailee BI w tomi, US breast BI limited HISTORY: Left breast lump TECHNIQUE: Bilateral full field and spot 3-D tomosynthesis images o were performed and synthetic 2-D images were generated. CAD analysis was submitted and interpreted. High resolution bilateral upper ou ter quadrant breast ultrasound was performed. COMPARISON: None BREAST PARENCHYMAL COMPOSITION: There are scattered areas of fibroglandular density. FINDINGS: MAMMOGRAPHIC FINDINGS: There is a circumscribed 8 x 5 mm mass in the upper outer left breast. Mild asymmetry suggested in the upper outer right breast on initial MLO view is not supported on supp lemental mammographic views, but upper outer quadrant ultrasound. Was performed as a precaution. No suspicious mass, architectural distortion, malignant calcification, skin thickening or retraction there are either breast is evident otherwise. ULTRASOUND: Right breast ultrasound: No suspicious mass or shadowing is detected in the upper outer quadrant of t he right breast. Left breast: 10.7 x 17.1 mm circumscribed oval hypoechoic mass with through transmission posterior en hancement is noted at 2:00 6 cm from the nipple. This is likely a benign fibroadenoma. No other suspi cious mass is evident in the upper outer quadrant of left breast. IMPRESSION: 1. Probable benign left upper outer quadrant fibroadenoma 2. 6 month diagnostic left mammogram and upper outer quadrant left breast ultrasound examination is r ecommended BI-RADS category 3, probably benign findings. Reviewed, dictated and finalized at location A. IMPRESSION: 1. Probable benign left upper outer quadrant fibroadenoma 2. 6 month diagnostic left mammogram and upper outer quadrant left breast ultra sound examination is recommended BI-RADS category 3, probably benign findings.
== END 2021-06-07 12:26 | disposition home or self-care (01) ==
PROVIDERS: Visit Provider Student in an Organized Health Care Education/Training Program
DX: N63.20 Unspecified lump in the left breast, unspecified quadrant (principal)
CPT/HCPCS: 76642; 77062; 77066; G0279

== ENCOUNTER 2022-05-23 14:00 | Outpatient (CLI) | payer OTHER, SELFPAY ==
--- NOTE | ~2022-05-23 | MMUS_ITS ---
EXAMINATION: MM diagnostic kailee BI w tomi, US breast LT limited HISTORY: Overdue six-month follow-up for probably benign left breast mass TECHNIQUE: Craniocaudal, mediolateral, and mediolateral oblique 3-D tomosynthesis images of the breas ts were performed and synthetic 2-D images were generated. Spot compression views of the left breast are also obtained. CAD analysis was submitted and interpreted. High resolution limited left breast ul trasound was performed. COMPARISON: 06/07/2021 BREAST PARENCHYMAL COMPOSITION: There are scattered areas of fibroglandular density. FINDINGS: MAMMOGRAPHIC FINDINGS: Left breast: There is a stable oval, obscured, equal density mass in the middle third of the outer br east at the 2:00 location measuring approximately 1.8 cm. There has been no suspicious interval lockett e. No suspicious calcification or architectural distortion are identified. Right breast: No suspicious mass, calcification, or architectural distortion are identified to sugges t malignancy. There has been no suspicious interval change. ULTRASOUND: There is a stable 2.5 x 1.3 cm oval, circumscribed, parallel, hypoechoic mass with posterior acoustic enhancement and no internal vascularity at the 2:00 location 6 cm from the nipple. Slight difference s in technique account for measured differences in size. IMPRESSION: 1. Stable, probably benign left breast mass. 2. Given one year of interval stability, recommend 12 month followup bilateral diagnostic mammogram a nd left breast ultrasound. BI-RADS category 3, probably benign findings. Reviewed, dictated and finalized at location A. IMPRESSION: 1. Stable, probably benign left breast mass. 2. Given one year of interval stability, recommend 12 month followup bilateral diagnostic mammogram and left breast ultrasound. BI-RADS category 3, probably benign findings.
== END 2022-05-23 14:01 | disposition home or self-care (01) ==
PROVIDERS: Visit Provider Obstetrics & Gynecology
DX: R92.8 Other abnormal and inconclusive findings on diagnostic imaging of breast (principal)
CPT/HCPCS: 76642; 77062; 77066; G0279

== ENCOUNTER 2023-06-27 12:25 | Outpatient (CLI) | payer OTHER, MEDICAID, SELFPAY ==
--- NOTE | ~2023-06-27 | MMUS_ITS ---
EXAMINATION: MM diagnostic kailee BI w tomi, US breast LT limited HISTORY: Follow-up left breast mass TECHNIQUE: Additional 3-D tomosynthesis images of the breasts were performed and synthetic 2-D images were generated. CAD analysis was submitted and interpreted. High resolution Limited left breast ultr asound was performed. COMPARISON: 06/07/2021 and 06/07/2021 BREAST PARENCHYMAL COMPOSITION: Dense: The breasts are heterogeneously dense, which may obscure small masses FINDINGS: MAMMOGRAPHIC FINDINGS: The right breast is stable without evidence for malignancy. There is a stable appearing mass in the u pper outer quadrant of the left breast which is partially obscured by fibroglandular tissue. ULTRASOUND: Limited left breast ultrasound: At 2:00, 6 cm from the nipple there is an oval hypoechoic heterogeneo us mass measuring 2 x 1.6 x 1.4 cm compared with 2.2 x 2.2 x 1.3 cm on prior examination. There is mi nimal internal vascularity. There is posterior acoustic enhancement. IMPRESSION: 1. Stable appearance to hypoechoic left breast mass at 2:00, 6 cm from the nipple without significant change dating back to 06/07/2021, likely benign. 2. Given one year of interval stability, recommend 12 month followup diagnostic bilateral mammogram a nd Limited left breast ultrasound recommended. BI-RADS category 3, probably benign findings. Reviewed, dictated and finalized at location A. IMPRESSION: 1. Stable appearance to hypoechoic left breast mass at 2:00, 6 cm from the nipp le without significant change dating back to 06/07/2021, likely benign. 2. Given one year of interval stability, recommend 12 month followup diagnostic bilateral mammogram and Limited left breast ultrasound recommended. BI-RADS category 3, probably benign findings.
== END 2023-06-27 12:26 | disposition home or self-care (01) ==
PROVIDERS: Visit Provider Obstetrics & Gynecology
DX: R92.8 Other abnormal and inconclusive findings on diagnostic imaging of breast (principal)
CPT/HCPCS: 76642; 77062; 77066; G0279

== ENCOUNTER 2025-01-13 19:23 | Emergency (ER) | payer OTHER, SELFPAY ==
--- NOTE | 2025-01-13 19:25 | ED_ITS ---
HPI - URI/Sore Throat General Chief Complaint: Upper Respiratory Infection Stated Complaint: FLU SYMPTOMS/EXPOSURE Time Seen by Provider: 01/13/25 19:33 Source: patient, RN notes reviewed and old records reviewed Mode of arrival: ambulatory Limitations: no limitations History of Present Illness HPI Narrative: 39-year-old female presents to the [facility] with concerns of flu-like symptoms. patient states that on Sunday started with flu-like symptoms of body aches, headache, cold chills, scratchy throat, stuffy nose. States that she was exposed to influenza B last week. States that she has taken DayQuil denies nausea vomiting diarrhea. Denies any measured fevers. Denies abdominal pain, chest pain. Related Data Home Medications ?Medication ?Instructions ?Recorded ?Confirmed ?Last Taken ?Type levonorgestrel (Mirena) 1 device intrauterine ONCE 1 05/26/21 Unknown History Allergies Allergy/AdvReac Type Severity Reaction Status Date / Time No Known Allergies Allergy Verified 01/13/25 19:28 Review of Systems Review of Systems: All systems reviewed & are unremarkable except as noted in HPI and below Constitutional: Constitutional: Reports as per HPI, Reports body ache(s), Reports chills and Reports fatigue ENT: Reports system reviewed and no additional complaints, except as documented Cardiovascular: Cardiovascular: Reports no additional cardiovascular complaints, Denies chest pain and Denies dyspnea Respiratory: Respiratory: Reports no additional respiratory complaints, Denies chest congestion, Denies cough and Denies dyspnea Musculoskeletal: Musculoskeletal: Reports no additional musculoskeletal complaints Integumentary/Breasts: Skin/Breast: Reports system reviewed and no additional complaints, except as docu PMFSH Past Medical History Medical History Vaginal delivery Family History Family History Grandparent Family history of type 2 diabetes mellitus Diabetes mellitus Father Hypertension Social History Social History Years smoked: 20 Smoking status: Current every day smoker Tobacco type: cigarettes Second hand tobacco smoke exposure: Yes Alcohol intake: current Alcohol use details: on occasion Substance use: never Substance use type: does not use Living arrangements: with family Gender identity (if verbalized by the patient): Female Spiritual care concerns: No Comments At the time of my signature, I reviewed and agree with the nursing past medical, surgical, social, and family history. There is no relevant family history per tinent to the patient complaint. Exam Const: General: cooperative, no acute distress, well developed, alert, tired appearing, uncomfortable and well nourished Nutritional Appearance: well nourished Orientation/consciousness: patient oriented x3 Limitations: no limitations HENMT: Head: normal to inspection Ears: hearing grossly normal bilaterally, external ears normal, TM's normal bilaterally, EAC's normal, mastoids normal and no periauricular adenopathy Face and sinus: normal facial exam Mouth: Yes Normal oral and palatal mucosa present, Yes lip normal, Yes tongue normal and Yes moist mucous membranes Throat: posterior oropharynx normal, uvula midline and no uvular edema Eyes: General: appearance normal, both eyes and all related structures Alignment and Position: alignment normal Neck: Neck: normal visual inspection, full ROM, no lymphadenopathy and no meningeal signs Chest: Chest palpation & inspection: normal inspection of the chest Resp: Effort & Inspection: normal respiratory effort and able to speak in complete sentences Auscultation: clear to auscultation bilaterally, no crackles, no rales, no rhonchi and no wheezes Cardio: Rate: regular rate Skin: General skin exam: normal color and no rashes or lesions noted Neuro: General: patient oriented x3, gait normal, moves all extremities and no meningeal signs Cognition (Neuro): normal cognition Speech: normal speech Gait exam (Neuro): Normal gait present Extrem: General: normal to inspection, full ROM, capillary refill normal and normal gait Psych: Appearance: grossly normal and well kempt Mental Status: mental status grossly normal Speech and movement: Normal speech and movement present and Clear speech present Affect: normal affect Attitude: cooperative Course Course Level of Care: Express Care Visit Vital Signs Vital signs: Vital Signs Temperature 97 F L 01/13/25 19:35 Pulse Rate 114 H 01/13/25 19:35 Respiratory Rate 16 01/13/25 19:35 Blood Pressure 160/93 H 01/13/25 19:35 Pulse Oximetry 98 01/13/25 19:35 Temperature 97 F L 01/13/25 19:35 Pulse Rate 114 H 01/13/25 19:35 Respiratory Rate 16 01/13/25 19:35 Blood Pressure 160/93 H 01/13/25 19:35 Pulse Oximetry 98 01/13/25 19:35 reviewed MDM MDM Narrative Medical decision making narrative: Patient with 2-3 day history of flu-like symptoms. Flu a and B as well as COVID are negative in clinic however symptoms very consistent with influenza like illness. Discussed this with patient. Discussed [id number] products. Patient is appropriate for outpatient treatment with close follow-up Discharge instructions reviewed with patient, as well as provided in writing per nursing staff. The instructions also include specific and strict return/GO TO THE ER as well as f/u information. All questions have been answered, and the patient deny any further questions with discharge and discharge plan. Some parts of this dictation were generated by voice recognition software and may contain typographical and/or grammatical inaccuracies. Differential Diagnosis Differential Diagnosis: Differential diagnostic considerations for upper respiratory infection include upper respiratory infection, croup, otitis media, sinusitis, viral infection, bronchitis, influenza, pharyngitis, strep, uvulitis.? Lab Data Labs: Lab Results 01/13/25 Range/Units 19:28 POC Influenza A Ag Negative (Negative) POC Influenza B Ag Negative (Negative) POC SARS CoV-2 Ag Negative (Negative) reviewed Discharge Plan Discharge Clinical Impression: Influenza-like illness Patient Disposition: Home Condition: Stable Instructions: Influenza (DC), Viral Syndrome (ED) Additional Instructions: Your symptoms are likely due to a viral illness, which is not treated with antibiotics. Typically viral infections last 7-10 days, can linger for couple of weeks. It is very important to treat your symptoms. Drink plenty of water, Gatorade, Pedialyte, ice pops or Jell-O. -Alternate Tylenol and Motrin per package directions for fever or pain. You can alternate every 4 hours -Antihistamine medication such as Zyrtec/Claritin/Lia during the day can help improve symptoms. -doing daily nasal irrigations can help relieve pressure your sinuses. Things like a Neti pot -Use Flonase twice a day for 5 days then daily to help reduce the inflammation and dry up your sinuses. -You can also use Mucinex. Be sure to drink plenty of water with this medication at least 8 ounces with every dose and it is important to drink 8 to 10 glasses of water per day. Water is a natural decongestant -Eat and drink things that are easy to swallow, like tea or soup, or popsicles. -Oral rinses such as: Salt water gargles and/or may use topical anesthetic (eg. Chloraseptic spray) or lozenges to relieve dryness or throat pain). -Frequent hand washing or hand test engine mechanic is one of the best ways to prevent spread of infection. -Using a vaporizer or humidifier at night will also help thin secretions and help with coughing up phlegm. -Follow up with primary care provider in 7-10 days if condition is not improving - For new or worsening symptoms go directly to the nearest ER Patient Language: Kosovan Prescriptions: No Action Mirena 20 mcg/24 hours (5 yrs) 52 mg intrauterine device 1 device intrauterine ONCE Rx Instructions: as a single dose omeprazole 20 mg capsule,delayed release(DR/EC) 20 mg PO DAILY 30 Days Qty: 30 1RF Follow-up/Referrals: UNKNOWN,DOCTOR [Non-Staff] Stand Alone Forms: Work/School Release IP Time of Disposition: 19:49
[2025-01-13 19:35] VITALS: BP 160/93; PULSE 114; RESP 16; TEMP 36.1; O2SAT 98
[2025-01-13 19:56] LABS: EDCOVIDSCREEN Negative (Negative)
[2025-01-13 19:57] LABS: EDINFLUASCREEN Negative (Negative); EDINFLUBSCREEN Negative (Negative)
== END 2025-01-13 19:52 | disposition home or self-care (01) ==
PROVIDERS: Emergency Provider Nurse Practitioner
DX: J11.1 Influenza due to unidentified influenza virus with other respiratory manifestations (principal); Z20.822 Contact with and (suspected) exposure to COVID-19; F17.210 Nicotine dependence, cigarettes, uncomplicated
CPT/HCPCS: 87426; 87804; 99212; G0463

== ENCOUNTER 2025-01-15 09:03 | Emergency (ER) | payer OTHER, SELFPAY ==
[2025-01-15] VITALS (7 sets, daily range): BP systolic 106–122; BP diastolic 67–87; PULSE 83–100; RESP 16–23; TEMP 36.9; O2SAT 97–100
[2025-01-15] MEDS: SODIUM CHLORIDE 0.9% IV 1,000 ML 999 ML IV CONT (10:10)
[2025-01-15] MEDS: KETOROLAC 30 MG/ML VIAL (*BKC) IV PUSH (10:10)
[2025-01-15 10:21] LABS: Influenza A QL RT-PCR Negative (Negative); Influenza B QL RT-PCR Negative (Negative); RSV RNA, RT-PCR Negative (Negative); SARS-CoV-2 RNA PCR Negative (Negative)
[2025-01-15 10:32] LABS: Add Urine Microscopic? YES; Appearance Urine Cloudy (Clear); Glucose Urine UA Negative (Negative); Leukocyte Esterase Ur 3+ LEU/UL (Negative); Nitrate Urine Negative (Negative); Non Pathogenic Casts 0-2; Specific Grav Ur 1.010 (1.001-1.035)
--- NOTE | 2025-01-15 11:19 | ED.GENADULT ---
HPI - General Adult General Chief complaint: Upper Respiratory Infection Stated complaint: flu symptoms Time Seen by Provider: 01/15/25 09:46 History of Present Illness HPI narrative: Patient is a 39-year-old female who presents ER with concerns for infection. Initially with sinus congestion sore throat and cough. She then began cycling through chills and sweats and body aches. She had been exposed to flu B by family member last week and thought she had that but tested negative at an urgent care. Symptoms continue so she came here. Urine has become darker and she is having some flank pain and mild epigastric discomfort. Related Data Home Medications ?Medication ?Instructions ?Recorded ?Confirmed ?Last Taken ?Type levonorgestrel (Mirena) 1 device intrauterine ONCE 11/18/19 05/26/21 Unknown History Allergies Allergy/AdvReac Type Severity Reaction Status Date / Time No Known Allergies Allergy Verified 01/13/25 19:28 Review of Systems Review of Systems: All systems reviewed & are unremarkable except as noted in HPI and below Constitutional: Constitutional: Reports no additional constitutional complaints ENT: Reports system reviewed and no additional complaints, except as documented Gastrointestinal: Gastrointestinal: Reports no additional gastrointestinal complaints Genitourinary: Genitourinary: Reports no additional female genitourinary complaints PMFSH Past Medical History Medical History Vaginal delivery Family History Family History Grandparent Family history of type 2 diabetes mellitus Diabetes mellitus Father Hypertension Social History Social History Years smoked: 20 Smoking status: Current every day smoker Tobacco type: cigarettes Second hand tobacco smoke exposure: Yes Alcohol intake: current Alcohol use details: on occasion Substance use: never Substance use type: does not use Living arrangements: with family Gender identity (if verbalized by the patient): Female Spiritual care concerns: No Exam Narrative: GENERAL: Fatigued-appearing, well-nourished, and in no acute distress. HEAD: Normocephalic, atraumatic. ENT: Mucous membranes moist. CHEST: Clear to auscultation. No respiratory distress. HEART: Regular rate and rhythm. Normal peripheral pulses. ABDOMEN: Soft, nontender, nondistended. EXTREMITIES: Normal range of motion. No edema. SKIN: Warm, dry, no rash. NEURO: Alert and oriented x3. PSYCH: Normal mood and affect. Course Course Emergency Course: Patient hydrating given Toradol. Urinalysis concerning for UTI developing and pyelonephritis for patient given her flank pain. Will prescribe antibiotics for home. Discussed return precautions and patient verbalized understanding. Vital Signs Vital signs: Vital Signs Temperature 98.4 F 01/15/25 09:28 Pulse Rate 100 01/15/25 09:28 Respiratory Rate 22 H 01/15/25 09:28 Blood Pressure 122/87 01/15/25 09:28 Pulse Oximetry 100 01/15/25 09:28 Temperature 98.4 F 01/15/25 09:30 Pulse Rate 85 01/15/25 11:31 Respiratory Rate 20 01/15/25 11:31 Blood Pressure 106/67 01/15/25 11:31 Pulse Oximetry 97 01/15/25 11:31 Oxygen Delivery Room Air 01/15/25 09:30 [facility] Differential Diagnosis Differential Diagnosis: UTI, pyelonephritis, gastroenteritis, influenza, URI, sepsis. Lab Data [facility] Lab Attestation statement: I personally reviewed the patient's lab results. Labs: Lab Results 01/15/25 01/15/25 Range/Units 09:34 10:10 Urine Color Yellow (Yellow) Urine Appearance Cloudy H (Clear) Urine pH 6.0 (5.0-9.0) Ur Specific [place] 1.010 (1.001-1.035) Urine Protein Trace (Negative) mg/dL Urine Glucose (UA) Negative (Negative) mg/dL Urine Ketones Negative (Negative) mg/dL Ur Blood (Man) 2+ H (Negative) Urine Nitrate Negative (Negative) Urine Bilirubin Negative (Negative) Urine Urobilinogen 0.2 (<2.0) mg/dL Leukocyte Esterase Rfl 3+ H (Negative) JERMAINE/UL Urine RBC 11-20 H (0-2) /hpf Urine WBC >100 H (0-3) /hpf Ur Squamous Epith Cells Few (Few) /hpf Urine Bacteria 4+ H /hpf Urine Casts 0-2 Influenza A (RT-PCR) Negative (Negative) Influenza B (RT-PCR) Negative (Negative) RSV (RT-PCR) Negative (Negative) SARS-CoV-2 RNA (RT-PCR) Negative (Negative) Discharge Plan Discharge Clinical Impression: Pyelonephritis Patient Disposition: Home Condition: Stable Instructions: Antibiotic Form, Kidney Infection (ED) Additional Instructions: Return ER if you have worsening pain, you cannot keep down food/water/medication, you develop chest pain shortness of breath, or you have additional concerns. Patient Language: Cook Islander Prescriptions: New ondansetron 4 mg tablet,disintegrating 4 mg PO Q6H PRN (Reason: nausea and vomiting) Qty: 10 0RF cefpodoxime 200 mg tablet 200 mg PO Q12H Qty: 20 0RF Rx Instructions: must administer with a meal/food No Action Mirena 20 mcg/24 hours (5 yrs) 52 mg intrauterine device 1 device intrauterine ONCE Rx Instructions: as a single dose omeprazole 20 mg capsule,delayed release(DR/EC) 20 mg PO DAILY 30 Days Qty: 30 1RF Follow-up/Referrals: Beverley Shane DO [Physician, Family Practice] - 1 Week PHYSICIAN,CUT AND COVER LINE WORKER [Primary Care Provider, Internal Medicine]
== END 2025-01-15 12:34 | disposition home or self-care (01) ==
PROVIDERS: Physician Assistant; Emergency Provider Emergency Medicine
DX: N12 Tubulo-interstitial nephritis, not specified as acute or chronic (principal); F17.210 Nicotine dependence, cigarettes, uncomplicated; Z20.822 Contact with and (suspected) exposure to COVID-19
CPT/HCPCS: 81001; 87086; 87186; 87637; 96361; 96374; 99284; J1885; J7030